=== PATIENT | female | born 1935 | race Caucasian/White ===

== ENCOUNTER 2018-03-18 13:45 | Inpatient (IN) | payer MEDICARE, BC ==
[~2018-03-18] VITALS: Ht 154.9 cm; Wt 66.3 kg
[~2018-03-18 13:45] MED LIST: ACET-784 PO; ALEN70TA69 PO; ASPI-81 PO; DIGO125T71 PO; FOLI0.4T2 PO; FURO40 PO; LISI40TA4 PO; METH25VI ITH; METO-408 PO; NITR0.4T SL; WARF3TAB29 PO
[2018-03-18 14:59] LABS: HEMATOCRIT 32.3 % (36-46); HEMOGLOBIN 10.7 g/dL (12.0-16.0); LYMPHOCYTES # (AUTO) 0.7 K/uL (1.0-4.8); LYMPHOCYTES % (AUTO) 12.6 % (22.0-44.0); MEAN CORPUSCULAR HGB CONC 33.1 G/dL (31.0-37.0); MEAN CORPUSCULAR VOLUME 88 fL (80-100); MONOCYTES # (AUTO) 0.4 K/uL (0.1-1.0); MONOCYTES % (AUTO) 7.4 % (2.0-9.0); NEUTROPHILS # (AUTO) 4.3 K/uL (1.8-7.7); PLATELET COUNT (AUTO) 194 K/uL (150-450); RED BLOOD CELL COUNT(AUTO) 3.69 MIL/uL (4.00-5.20)
[2018-03-18 15:07] LABS: ANION GAP 1 mmol/L (8-16); CALCIUM, TOTAL 9.7 mg/dL (8.8-10.5); CARBON DIOXIDE 37 mmol/L (22-29); CHLORIDE 102 mmol/L (98-107); CREATININE 0.91 mg/dL (0.60-1.30); GLOMERULAR FILTR. RATE CALC 59 mL/min (>60); GLUCOSE,RANDOM 123 mg/dL (70-110); POTASSIUM 4.4 mmol/L (3.5-5.1); SODIUM SERUM 140 mmol/L (136-145); UREA NITROGEN, BLOOD 30 mg/dL (7-18)
[2018-03-18 15:12] LABS: INR 1.7 (0.9-1.1); PROTHROMBIN TIME 17.8 SEC (9.4-11.6)
[2018-03-18 15:18] LABS: ALANINE AMINOTRANSFERASE 31 U/L (12-78); ALBUMIN 3.5 g/dL (3.4-5.0); ALKALINE PHOSPHATASE 45 U/L (46-116); ASPARTATE AMINOTRANSFERASE 23 U/L (15-37); BILIRUBIN,TOTAL 0.7 mg/dL (0.1-1.0); DIGOXIN < 0.20 ng/mL (0.90-2.00); LIPASE 59 U/L (73-393); TOTAL PROTEIN, SERUM 7.3 g/dL (6.4-8.2)
[2018-03-18] MEDS ORDERED: WARF5 PO (15:56)
[2018-03-18] MEDS ORDERED: PANTOPRAZOLE SODIUM 80 MG in SODIUM CHLORIDE 0.9% 100 ML IV SCH (16:00)
[2018-03-18] MEDS ORDERED: FUROSEMIDE 40 MG/4 ML VIAL IVP ONE (16:00)
[2018-03-18] MEDS ORDERED: ONDANSETRON HCL 4 MG/2 ML VIAL IVP PRN (17:15)
[2018-03-18] MEDS ORDERED: 0.9% SODIUM CHLORIDE 10 ML SYRINGE IVP PRN (17:15)
[2018-03-18] MEDS ORDERED: ACETAMINOPHEN 325 MG TABLET PO PRN (17:15)
[2018-03-18 17:58] VITALS: BP 131/66
[2018-03-18 19:35] VITALS: BP 123/69
[2018-03-18 23:30] VITALS: BP 129/64
[2018-03-19 05:08] VITALS: BP 135/67
[2018-03-19 06:30] LABS: BASOPHILS % (AUTO) 2.2 % (0.0-2.0); EOSINOPHILS % (AUTO) 4.2 % (1.0-6.0); HEMATOCRIT 30.9 % (36-46); HEMOGLOBIN 10.5 g/dL (12.0-16.0); LYMPHOCYTES # (AUTO) 1.2 K/uL (1.0-4.8); MEAN CORPUSCULAR HEMOGLOBIN 29.6 pg (26.0-34.0); MEAN CORPUSCULAR VOLUME 87 fL (80-100); MONOCYTES # (AUTO) 0.5 K/uL (0.1-1.0); MONOCYTES % (AUTO) 11.5 % (2.0-9.0); NEUTROPHILS # (AUTO) 2.1 K/uL (1.8-7.7); NEUTROPHILS % (AUTO) 52.1 % (40.0-70.0); PLATELET COUNT (AUTO) 183 K/uL (150-450); RED BLOOD CELL COUNT(AUTO) 3.55 MIL/uL (4.00-5.20); RED CELL DISTRIBUTION WIDTH 16.7 % (11.5-14.5)
[2018-03-19 06:35] LABS: INR 1.6 (0.9-1.1); PROTHROMBIN TIME 16.8 SEC (9.4-11.6)
[2018-03-19 06:47] LABS: ANION GAP 2 mmol/L (8-16); CALCIUM, TOTAL 9.5 mg/dL (8.8-10.5); CARBON DIOXIDE 36 mmol/L (22-29); CHLORIDE 102 mmol/L (98-107); CREATININE 0.79 mg/dL (0.60-1.30); GLOMERULAR FILTR. RATE CALC > 60 mL/min (>60); GLUCOSE,RANDOM 78 mg/dL (70-110); POTASSIUM 3.6 mmol/L (3.5-5.1); SODIUM SERUM 140 mmol/L (136-145); UREA NITROGEN, BLOOD 26 mg/dL (7-18)
[2018-03-19 07:48] VITALS: BP 128/66
[2018-03-19] MEDS ORDERED: NITROGLYCERIN 0.4 MG SUBLINGUAL TABLET #25 SL PRN (10:45)
[2018-03-19] MEDS ORDERED: ONDANSETRON HCL 4 MG/2 ML VIAL IVP PRN (10:45)
[2018-03-19] MEDS ORDERED: 0.9% SODIUM CHLORIDE 10 ML SYRINGE IVP PRN (10:45)
[2018-03-19] MEDS ORDERED: IPRATROPIUM BROMIDE 0.5 MG/2.5 ML NEB SOLUTION NEB PRN (10:45)
[2018-03-19] MEDS ORDERED: ALBUTEROL SULFATE 2.5 MG/0.5 ML NEB SOLUTION NEB PRN (10:45)
[2018-03-19] MEDS ORDERED: ZOLPIDEM TARTRATE 5 MG TABLET PO PRN (10:45)
[2018-03-19] MEDS: PANTOPRAZOLE SODIUM 40 MG/VIAL IVP SCH (11:14)
[2018-03-19] MEDS: ASPIRIN 325 MG TABLET PO SCH (11:14)
[2018-03-19] MEDS: METOPROLOL SUCCINATE 25 MG ER TABLET PO SCH (11:14)
[2018-03-19] MEDS: DIGOXIN 125 MCG TABLET PO SCH (11:14)
[2018-03-19] MEDS: FUROSEMIDE 40 MG TABLET PO SCH (11:14)
[2018-03-19 11:20] VITALS: BP 132/66
[2018-03-19] MEDS: FOLIC ACID 0.4 MG TABLET PO SCH (12:07)
[2018-03-19] MEDS: LISINOPRIL 20 MG TABLET PO SCH (12:07)
[2018-03-19 15:25] VITALS: BP 115/59
[2018-03-19] MEDS: ALBUTEROL SULFATE 2.5 MG/0.5 ML NEB SOLUTION NEB SCH ×2 (16:14→20:05)
[2018-03-19] MEDS: IPRATROPIUM BROMIDE 0.5 MG/2.5 ML NEB SOLUTION NEB SCH ×2 (16:15→20:04)
[2018-03-19 16:57] LABS: BASOPHILS % (AUTO) 1.4 % (0.0-2.0); EOSINOPHILS % (AUTO) 3.1 % (1.0-6.0); HEMATOCRIT 30.5 % (36-46); HEMOGLOBIN 10.2 g/dL (12.0-16.0); LYMPHOCYTES # (AUTO) 1.5 K/uL (1.0-4.8); LYMPHOCYTES % (AUTO) 30.3 % (22.0-44.0); MEAN CORPUSCULAR HEMOGLOBIN 29.2 pg (26.0-34.0); MEAN CORPUSCULAR HGB CONC 33.5 G/dL (31.0-37.0); MEAN CORPUSCULAR VOLUME 87 fL (80-100); MONOCYTES # (AUTO) 0.6 K/uL (0.1-1.0); MONOCYTES % (AUTO) 11.6 % (2.0-9.0); NEUTROPHILS # (AUTO) 2.6 K/uL (1.8-7.7); NEUTROPHILS % (AUTO) 53.6 % (40.0-70.0); PLATELET COUNT (AUTO) 180 K/uL (150-450); RED BLOOD CELL COUNT(AUTO) 3.51 MIL/uL (4.00-5.20); RED CELL DISTRIBUTION WIDTH 16.9 % (11.5-14.5)
[2018-03-19 19:40] VITALS: BP 103/45
[2018-03-20] VITALS (7 sets, daily range): BP systolic 92–128; BP diastolic 46–67
[2018-03-20 00:46] LABS: BASOPHILS % (AUTO) 0.4 % (0.0-2.0); EOSINOPHILS % (AUTO) 2.5 % (1.0-6.0); HEMATOCRIT 31.4 % (36-46); HEMOGLOBIN 10.5 g/dL (12.0-16.0); LYMPHOCYTES # (AUTO) 0.9 K/uL (1.0-4.8); LYMPHOCYTES % (AUTO) 17.1 % (22.0-44.0); MEAN CORPUSCULAR HEMOGLOBIN 29.4 pg (26.0-34.0); MEAN CORPUSCULAR HGB CONC 33.5 G/dL (31.0-37.0); MEAN CORPUSCULAR VOLUME 88 fL (80-100); MONOCYTES # (AUTO) 0.6 K/uL (0.1-1.0); MONOCYTES % (AUTO) 11.7 % (2.0-9.0); NEUTROPHILS # (AUTO) 3.7 K/uL (1.8-7.7); NEUTROPHILS % (AUTO) 68.3 % (40.0-70.0); PLATELET COUNT (AUTO) 179 K/uL (150-450); RED BLOOD CELL COUNT(AUTO) 3.58 MIL/uL (4.00-5.20); RED CELL DISTRIBUTION WIDTH 16.8 % (11.5-14.5)
[2018-03-20] MEDS: ALBUTEROL SULFATE 2.5 MG/0.5 ML NEB SOLUTION NEB SCH ×4 (02:10→19:46)
[2018-03-20] MEDS: IPRATROPIUM BROMIDE 0.5 MG/2.5 ML NEB SOLUTION NEB SCH ×4 (02:10→19:46)
[2018-03-20] MEDS: ACETAMINOPHEN 325 MG TABLET PO PRN (03:23)
[2018-03-20 08:22] LABS: BASOPHILS % (AUTO) 0.4 % (0.0-2.0); HEMATOCRIT 30.8 % (36-46); HEMOGLOBIN 10.3 g/dL (12.0-16.0); LYMPHOCYTES # (AUTO) 1.1 K/uL (1.0-4.8); LYMPHOCYTES % (AUTO) 18.9 % (22.0-44.0); MEAN CORPUSCULAR HEMOGLOBIN 29.3 pg (26.0-34.0); MEAN CORPUSCULAR HGB CONC 33.6 G/dL (31.0-37.0); MEAN CORPUSCULAR VOLUME 87 fL (80-100); MONOCYTES # (AUTO) 0.7 K/uL (0.1-1.0); MONOCYTES % (AUTO) 12.8 % (2.0-9.0); NEUTROPHILS # (AUTO) 3.7 K/uL (1.8-7.7); NEUTROPHILS % (AUTO) 64.9 % (40.0-70.0); PLATELET COUNT (AUTO) 175 K/uL (150-450); RED BLOOD CELL COUNT(AUTO) 3.53 MIL/uL (4.00-5.20); RED CELL DISTRIBUTION WIDTH 16.9 % (11.5-14.5)
[2018-03-20] MEDS: METOPROLOL SUCCINATE 25 MG ER TABLET PO SCH (08:26)
[2018-03-20] MEDS: DIGOXIN 125 MCG TABLET PO SCH (08:26)
[2018-03-20] MEDS: ASPIRIN 325 MG TABLET PO SCH (08:26)
[2018-03-20] MEDS: FUROSEMIDE 40 MG TABLET PO SCH (08:26)
[2018-03-20] MEDS: FOLIC ACID 0.4 MG TABLET PO SCH (08:26)
[2018-03-20] MEDS: PANTOPRAZOLE SODIUM 40 MG/VIAL IVP SCH (08:27)
[2018-03-20 08:28] LABS: CALCIUM, TOTAL 9.3 mg/dL (8.8-10.5); CREATININE 0.92 mg/dL (0.60-1.30); MAGNESIUM 1.9 mg/dL (1.80-2.40)
[2018-03-20] MEDS: LISINOPRIL 20 MG TABLET PO SCH (11:58)
[2018-03-20] MEDS ORDERED: WARFARIN SODIUM 3 MG TABLET PO SCH (17:00)
[2018-03-21] VITALS: BP 110/49
[2018-03-21] MEDS: IPRATROPIUM BROMIDE 0.5 MG/2.5 ML NEB SOLUTION NEB SCH ×2 (01:58→09:09)
[2018-03-21] MEDS: ALBUTEROL SULFATE 2.5 MG/0.5 ML NEB SOLUTION NEB SCH ×2 (01:58→09:10)
[2018-03-21] MEDS: ACETAMINOPHEN 325 MG TABLET PO PRN (02:05)
[2018-03-21 04:03] VITALS: BP 127/69
[2018-03-21 06:53] LABS: BASOPHILS % (AUTO) 1.1 % (0.0-2.0); HEMATOCRIT 28.9 % (36-46); HEMOGLOBIN 9.7 g/dL (12.0-16.0); LYMPHOCYTES # (AUTO) 0.7 K/uL (1.0-4.8); LYMPHOCYTES % (AUTO) 15.2 % (22.0-44.0); MEAN CORPUSCULAR HEMOGLOBIN 30.2 pg (26.0-34.0); MEAN CORPUSCULAR HGB CONC 33.7 G/dL (31.0-37.0); MEAN CORPUSCULAR VOLUME 90 fL (80-100); MONOCYTES # (AUTO) 0.6 K/uL (0.1-1.0); MONOCYTES % (AUTO) 12.7 % (2.0-9.0); NEUTROPHILS # (AUTO) 3.3 K/uL (1.8-7.7); PLATELET COUNT (AUTO) 177 K/uL (150-450); RED BLOOD CELL COUNT(AUTO) 3.23 MIL/uL (4.00-5.20); RED CELL DISTRIBUTION WIDTH 16.5 % (11.5-14.5)
[2018-03-21 06:59] LABS: INR 1.2 (0.9-1.1); PROTHROMBIN TIME 12.6 SEC (9.4-11.6)
[2018-03-21 07:05] VITALS: BP 118/64
[2018-03-21 07:12] LABS: CALCIUM, TOTAL 9.3 mg/dL (8.8-10.5); CREATININE 0.9 mg/dL (0.60-1.30); MAGNESIUM 2.1 mg/dL (1.80-2.40); POTASSIUM 3.9 mmol/L (3.5-5.1)
[2018-03-21] MEDS: DIGOXIN 125 MCG TABLET PO SCH (08:55)
[2018-03-21] MEDS: FOLIC ACID 0.4 MG TABLET PO SCH (08:55)
[2018-03-21] MEDS: FUROSEMIDE 40 MG TABLET PO SCH (08:55)
[2018-03-21] MEDS: ASPIRIN 325 MG TABLET PO SCH (08:55)
[2018-03-21] MEDS: METOPROLOL SUCCINATE 25 MG ER TABLET PO SCH (08:55)
[2018-03-21] MEDS: PANTOPRAZOLE SODIUM 40 MG/VIAL IVP SCH (08:56)
[2018-03-21 11:20] VITALS: BP 114/55
[2018-03-21] MEDS: LISINOPRIL 20 MG TABLET PO SCH (11:33)
[2018-03-21] MEDS ORDERED: PANT40TA25 PO (11:39)
[2018-03-22] MEDS ORDERED: ALENDRONATE SODIUM 70 MG TABLET PO SCH (06:30)
== END 2018-03-21 14:10 | disposition home or self-care (01) | DRG 378 ==
LOC: EMS 13:47 → 5N 17:24
PROVIDERS: ADMIT Internal Medicine; ATTEND Internal Medicine
DX: K92.2 Gastrointestinal hemorrhage, unspecified (principal); I50.32 Chronic diastolic (congestive) heart failure; I48.2 Chronic atrial fibrillation; I11.0 Hypertensive heart disease with heart failure; I25.10 Atherosclerotic heart disease of native coronary artery without angina pectoris; I35.1 Nonrheumatic aortic (valve) insufficiency; M06.9 Rheumatoid arthritis, unspecified; I25.2 Old myocardial infarction; Z90.710 Acquired absence of both cervix and uterus; Z95.0 Presence of cardiac pacemaker; Z95.1 Presence of aortocoronary bypass graft; Z95.3 Presence of xenogenic heart valve; Z79.01 Long term (current) use of anticoagulants; Z79.82 Long term (current) use of aspirin; Z79.83 Long term (current) use of bisphosphonates; Z79.899 Other long term (current) drug therapy; Z86.73 Personal history of transient ischemic attack (TIA), and cerebral infarction without residual deficits; Z87.81 Personal history of (healed) traumatic fracture; Z82.49 Family history of ischemic heart disease and other diseases of the circulatory system
CPT/HCPCS: 82271; 83605; 83735; 86850; 86900; 86901; 93005; 93306; 94640; 96365; 96375; 97116; 97162; 99285; C9113; J1940; J7050